=== PATIENT | male | born 1940 | race Caucasian/White ===

== ENCOUNTER 2017-08-15 13:15 | Outpatient (RCR) | payer MEDICARE, BC | END 2017-10-23 | LOC: MKS.ESL.PT | DX: R26.89 Other abnormalities of gait and mobility (principal) | CPT/HCPCS: G8978-GP; G8979-GP ==

== ENCOUNTER 2017-11-17 09:02 | Inpatient (IN) | payer MEDICARE, BC ==
[2017-11-17] VITALS (254 sets, daily range): BP systolic 101–141; BP diastolic 51–82; PULSE 71–94; TEMP 97–101.9; O2SAT 81–100
[~2017-11-17] VITALS: Ht 172.7 cm; Wt 69.2 kg
[2017-11-17 09:35] LABS: BASO % 0.6 % (0.0-2.0); EOS # 0.1 (0.0-0.7); EOS % 2.2 % (0-4.0); GRAN # 3.4 (1.4-6.5); GRAN % 67.1 % (42.2-75.2); HEMOGLOBIN 14.9 g/dl (13.5-18.0); LYMPH # 1.1 (1.2-3.4); LYMPH % 21.5 % (20.0-51.0); MEAN CELL VOLUME 88 fl (80.0-100.0); MEAN CORPUSCULAR HEMOGLOBIN 31 pg (27.0-31.0); MEAN CORPUSCULAR HGB CONC 35 g/dl (33.0-37.0); MEAN PLATELET VOLUME 8.3 fl (7.4-10.4); MONO # 0.4 (0.1-0.6); MONO % 8.4 % (1.7-9.3); PLATELET COUNT 140 K/mm3 (130-400); RED BLOOD COUNT 4.89 M/mm3 (4.20-5.60); REDCELL DISTRIBUTION WIDTH-CV 12.6 % (11.5-14.5)
[2017-11-17] MEDS ORDERED: SYNTHROID 0.10.15 MG PO (09:36)
[2017-11-17] MEDS ORDERED: APRESOLINE 10MG10 MG PO (09:37)
[2017-11-17] MEDS ORDERED: TOPROL XL 50MG50 MG PO (09:37)
[2017-11-17] MEDS ORDERED: LEXAPRO 10MG10 MG PO (09:38)
[2017-11-17] MEDS ORDERED: PLAVIX 75MG TAB75 MG PO (09:38)
[2017-11-17 09:39] LABS: INR 0.9 (0.8-3.0); PROTHROMBIN TIME 10.7 SECONDS (9.7-12.8)
[2017-11-17] MEDS ORDERED: MIRALAX PA17 GM/Dose PO (09:39)
[2017-11-17] MEDS ORDERED: ZYRTEC 10MG10 MG PO (09:39)
[2017-11-17] MEDS ORDERED: ASPIRIN 81M81 MG/TA2 PO (09:40)
[2017-11-17] MEDS ORDERED: MULTIPLE VITAMI1 CAP PO (09:40)
[2017-11-17] MEDS ORDERED: CARAFATE 1GM1 G PO (09:40)
[2017-11-17 09:41] LABS: PARTIAL THROMBOPLASTIN TIME 24.6 SECONDS (26.0-37.0)
[2017-11-17] MEDS ORDERED: MIRAPEX 1MG PO (09:42)
[2017-11-17] MEDS ORDERED: BENICAR40 MG PO (09:42)
[2017-11-17] MEDS ORDERED: ZOCOR 20MG20 MG PO (09:43)
[2017-11-17] MEDS ORDERED: PROSCAR 5MG5 MG PO (09:45)
[2017-11-17] MEDS ORDERED: PROTONIX 40MG T40 MG PO (09:46)
[2017-11-17] MEDS ORDERED: FLOMAX 0.40.4 MG/CAP PO (09:46)
[2017-11-17 09:48] LABS: ALANINE AMINOTRANSFERASE 29 U/L (21-72); ALBUMIN 4.4 gm/dL (3.5-5.0); ALKALINE PHOSPHATASE 84 U/L (50-136); ANION GAP 8 mmol/L (7-16); AST,SGOT 28 U/L (15-37); BILIRUBIN,TOTAL 0.7 mg/dL (0.0-1.0); BLOOD UREA NITROGEN 16 mg/dL (9-20); CALCIUM 9.7 mg/dL (8.4-10.2); CARBON DIOXIDE 26 mmol/L (22-30); CHLORIDE 100 mmol/L (98-107); CREATININE, serum 1.06 mg/dL (0.66-1.25); GLUCOSE 97 mg/dL (74-106); SODIUM 135 mmol/L (137-145); TOTAL PROTEIN 7.1 gm/dL (6.4-8.2)
[2017-11-17 09:51] LABS: C-REACTIVE PROTEIN < 0.5 mg/dL (0.0-0.9)
[2017-11-17 11:47] LABS: TSH w REFLEX 0.174 uIU/mL (0.465-4.680)
[2017-11-18] VITALS (757 sets, daily range): BP systolic 105–187; BP diastolic 59–98; PULSE 65–90; TEMP 97.3–99.2; O2SAT 70–100
[2017-11-18 05:41] LABS: BASO % 0.3 % (0.0-2.0); EOS % 0.3 % (0-4.0); GRAN # 4.7 (1.4-6.5); GRAN % 72.6 % (42.2-75.2); HEMATOCRIT 40.1 % (42.0-52.0); HEMOGLOBIN 14.2 g/dl (13.5-18.0); LYMPH # 1.1 (1.2-3.4); LYMPH % 16.4 % (20.0-51.0); MEAN CELL VOLUME 87 fl (80.0-100.0); MEAN CORPUSCULAR HEMOGLOBIN 31 pg (27.0-31.0); MEAN CORPUSCULAR HGB CONC 35 g/dl (33.0-37.0); MEAN PLATELET VOLUME 8.6 fl (7.4-10.4); MONO # 0.7 (0.1-0.6); MONO % 10.2 % (1.7-9.3); PLATELET COUNT 135 K/mm3 (130-400); RED BLOOD COUNT 4.59 M/mm3 (4.20-5.60); REDCELL DISTRIBUTION WIDTH-CV 12.7 % (11.5-14.5)
[2017-11-18 05:51] LABS: CALCIUM 9.2 mg/dL (8.4-10.2); CREATININE, serum 1.11 mg/dL (0.66-1.25); POTASSIUM 3.8 mmol/L (3.4-5.0)
[2017-11-18 08:28] LABS: COLLECTION METHOD CLEAN CATCH
[2017-11-18 08:45] LABS: PH 7 (5-8); SQUAMOUS EPITHELIAL None Seen /hpf; URINE APPEARANCE Clear; URINE BACTERIA None Seen /hpf; URINE BILIRUBIN Negative (NEGATIVE); URINE BLOOD Negative (NEGATIVE); URINE COLOR Yellow; URINE GLUCOSE Negative (NEGATIVE); URINE KETONE Trace (NEGATIVE); URINE LEUKOCYTE ESTERASE Negative (NEGATIVE); URINE NITRATE Negative (NEGATIVE); URINE PROTEIN(semi-quant) Negative (NEGATIVE); URINE RBC 0-2 /hpf; URINE UROBILINOGEN Negative (NEGATIVE); URINE WBC 0-2 /hpf
[2017-11-18 13:33] LABS: FOLATE (FOLIC ACID) 16.1 ng/mL (7.0-31.4)
[2017-11-19] VITALS (631 sets, daily range): BP systolic 118–151; BP diastolic 67–97; PULSE 56–106; TEMP 97.8–98.9; O2SAT 63–100
[2017-11-19 06:58] LABS: BASO % 0.5 % (0.0-2.0); EOS % 0.5 % (0-4.0); GRAN # 6.8 (1.4-6.5); GRAN % 82.3 % (42.2-75.2); HEMATOCRIT 39.8 % (42.0-52.0); HEMOGLOBIN 14.2 g/dl (13.5-18.0); LYMPH # 0.8 (1.2-3.4); LYMPH % 9.2 % (20.0-51.0); MEAN CELL VOLUME 87 fl (80.0-100.0); MEAN CORPUSCULAR HEMOGLOBIN 31 pg (27.0-31.0); MEAN CORPUSCULAR HGB CONC 36 g/dl (33.0-37.0); MEAN PLATELET VOLUME 8.5 fl (7.4-10.4); MONO # 0.6 (0.1-0.6); MONO % 7.3 % (1.7-9.3); PLATELET COUNT 133 K/mm3 (130-400); RED BLOOD COUNT 4.57 M/mm3 (4.20-5.60); REDCELL DISTRIBUTION WIDTH-CV 12.7 % (11.5-14.5)
[2017-11-19 07:23] LABS: CALCIUM 9.2 mg/dL (8.4-10.2); CREATININE, serum 1.01 mg/dL (0.66-1.25); POTASSIUM 3.4 mmol/L (3.4-5.0)
[2017-11-20] VITALS (494 sets, daily range): BP systolic 115–163; BP diastolic 57–90; PULSE 56–61; TEMP 97.8–98.1; O2SAT 93–100
[2017-11-20 05:44] LABS: BASO % 0.5 % (0.0-2.0); EOS # 0.2 (0.0-0.7); EOS % 3.9 % (0-4.0); GRAN # 3.5 (1.4-6.5); GRAN % 61.9 % (42.2-75.2); HEMATOCRIT 37.2 % (42.0-52.0); LYMPH # 1.4 (1.2-3.4); LYMPH % 24.1 % (20.0-51.0); MEAN CELL VOLUME 88 fl (80.0-100.0); MEAN CORPUSCULAR HEMOGLOBIN 31 pg (27.0-31.0); MEAN CORPUSCULAR HGB CONC 35 g/dl (33.0-37.0); MEAN PLATELET VOLUME 8.6 fl (7.4-10.4); MONO # 0.5 (0.1-0.6); MONO % 9.4 % (1.7-9.3); PLATELET COUNT 119 K/mm3 (130-400); RED BLOOD COUNT 4.21 M/mm3 (4.20-5.60); REDCELL DISTRIBUTION WIDTH-CV 12.9 % (11.5-14.5)
[2017-11-20 05:57] LABS: CALCIUM 9.1 mg/dL (8.4-10.2); CREATININE, serum 1.04 mg/dL (0.66-1.25); POTASSIUM 3.4 mmol/L (3.4-5.0)
[2017-11-20] MEDS ORDERED: TOPROL XL100 MG PO (10:52)
[2017-11-20] MEDS ORDERED: SEROQUEL 2525 MG/TAB PO (10:53)
== END 2017-11-20 13:35 | disposition home or self-care (01) | DRG 78 ==
LOC: COL.ER 09:02 → ICU 10:14
PROVIDERS: Emergency Medicine; Family Medicine; Internal Medicine; Internal Medicine Pulmonary Disease
DX: I67.4 Hypertensive encephalopathy (principal); I16.1 Hypertensive emergency; R47.01 Aphasia; I10 Essential (primary) hypertension; I25.10 Atherosclerotic heart disease of native coronary artery without angina pectoris; Z95.5 Presence of coronary angioplasty implant and graft; Z87.891 Personal history of nicotine dependence; R25.1 Tremor, unspecified; N40.1 Benign prostatic hyperplasia with lower urinary tract symptoms; R33.8 Other retention of urine; F03.90 Unspecified dementia, unspecified severity, without behavioral disturbance, psychotic disturbance, mood disturbance, and anxiety; G25.81 Restless legs syndrome
CPT/HCPCS: 99223-AI; 99233-AI; 99239; A4216; J0360; J1630; J1650; J2060; J3486; J7030; J7050

== ENCOUNTER 2018-04-02 14:30 | Outpatient (RCR) | payer MEDICARE, BC ==
[~2018-04-02 14:30] MED LIST: APRESOLINE 10MG10 MG PO; ASPIRIN 81M81 MG/TA2 PO; BENICAR40 MG PO; CARAFATE 1GM1 G PO; FLOMAX 0.40.4 MG/CAP PO; LEXAPRO 10MG10 MG PO; MIRALAX PA17 GM/Dose PO; MIRAPEX 1MG PO; MULTIPLE VITAMI1 CAP PO; PLAVIX 75MG TAB75 MG PO; PROSCAR 5MG5 MG PO; PROTONIX 40MG T40 MG PO; SEROQUEL 2525 MG/TAB PO; SYNTHROID 0.10.15 MG PO; TOPROL XL 50MG50 MG PO; TOPROL XL100 MG PO; ZOCOR 20MG20 MG PO; ZYRTEC 10MG10 MG PO
== END 2018-04-06 | disposition home or self-care (01) ==
LOC: WSST
DX: R41.842 Visuospatial deficit (principal); R41.3 Other amnesia; R41.840 Attention and concentration deficit; R48.9 Unspecified symbolic dysfunctions
CPT/HCPCS: G9165-GN; G9166-GN

== ENCOUNTER 2018-05-06 13:45 | Outpatient (RCR) | payer MEDICARE, BC | END 2018-07-07 | disposition home or self-care (01) | LOC: WSST | DX: R41.842 Visuospatial deficit (principal); R41.3 Other amnesia; R41.840 Attention and concentration deficit | CPT/HCPCS: G9165-GN; G9166-GN; G9167-GN ==

== ENCOUNTER → 2018-07-23 | Outpatient (CLI) | payer MEDICARE, BC | LOC: COL.CARD 09:47 | DX: F03.90 Unspecified dementia, unspecified severity, without behavioral disturbance, psychotic disturbance, mood disturbance, and anxiety (principal); G20 Parkinson's disease; R41.82 Altered mental status, unspecified ==

== ENCOUNTER 2019-02-15 11:18 | Emergency (ER) | payer MEDICARE, BC ==
[~2019-02-15] VITALS: Ht 175.3 cm; Wt 90.9 kg
[2019-02-15 11:33] LABS: BASO % 0.7 % (0.0-2.0); EOS # 0.1 (0.0-0.7); EOS % 1.6 % (0-4.0); GRAN # 4.3 (1.4-6.5); GRAN % 69.5 % (42.2-75.2); HEMATOCRIT 44.8 % (42.0-52.0); HEMOGLOBIN 15.7 g/dl (13.5-18.0); LYMPH # 1.2 (1.2-3.4); LYMPH % 20.1 % (20.0-51.0); MEAN CELL VOLUME 89 fl (80.0-100.0); MEAN CORPUSCULAR HEMOGLOBIN 31 pg (27.0-31.0); MEAN CORPUSCULAR HGB CONC 35 g/dl (33.0-37.0); MEAN PLATELET VOLUME 8.7 fl (7.4-10.4); MONO # 0.5 (0.1-0.6); MONO % 7.9 % (1.7-9.3); PLATELET COUNT 136 K/mm3 (130-400); RED BLOOD COUNT 5.03 M/mm3 (4.20-5.60); REDCELL DISTRIBUTION WIDTH-CV 13.2 % (11.5-14.5)
[2019-02-15 11:38] LABS: PROTHROMBIN TIME 10.8 SECONDS (9.7-12.8)
[2019-02-15 11:46] LABS: ALANINE AMINOTRANSFERASE 18 U/L (21-72); ALBUMIN 4.4 gm/dL (3.5-5.0); ALKALINE PHOSPHATASE 75 U/L (50-136); ANION GAP 8 mmol/L (7-16); AST,SGOT 28 U/L (15-37); BILIRUBIN,TOTAL 0.7 mg/dL (0.0-1.0); BLOOD UREA NITROGEN 22 mg/dL (9-20); CALCIUM 10.5 mg/dL (8.4-10.2); CARBON DIOXIDE 28 mmol/L (22-30); CHLORIDE 99 mmol/L (98-107); CREATININE, serum 1.25 (0.66-1.25); GLUCOSE 103 mg/dL (74-106); POTASSIUM 4.2 mmol/L (3.4-5.0); SODIUM 135 mmol/L (137-145); TOTAL PROTEIN 7.8 gm/dL (6.4-8.2)
[2019-02-15 11:52] LABS: C-REACTIVE PROTEIN < 0.5 mg/dL (0.0-0.9)
[2019-02-15 13:18] LABS: COLLECTION METHOD CLEAN CATCH
[2019-02-15 13:24] LABS: PH 7 (5-8); SQUAMOUS EPITHELIAL None Seen /hpf; URINE APPEARANCE Clear; URINE BACTERIA None Seen /hpf; URINE BILIRUBIN Negative (NEGATIVE); URINE BLOOD Negative (NEGATIVE); URINE COLOR Yellow; URINE GLUCOSE Negative (NEGATIVE); URINE KETONE Negative (NEGATIVE); URINE LEUKOCYTE ESTERASE Negative (NEGATIVE); URINE NITRATE Negative (NEGATIVE); URINE PROTEIN(semi-quant) Negative (NEGATIVE); URINE RBC None Seen /hpf; URINE UROBILINOGEN Negative (NEGATIVE)
[2019-02-15 13:30] VITALS: BP 156/88; PULSE 64
== END 2019-02-15 13:54 | disposition home or self-care (01) ==
LOC: COL.ER 11:18
PROVIDERS: Family Medicine
DX: G45.9 Transient cerebral ischemic attack, unspecified (principal); I25.10 Atherosclerotic heart disease of native coronary artery without angina pectoris; I10 Essential (primary) hypertension; N40.0 Benign prostatic hyperplasia without lower urinary tract symptoms; Z79.02 Long term (current) use of antithrombotics/antiplatelets; Z79.82 Long term (current) use of aspirin

== ENCOUNTER 2020-03-07 23:41 | Inpatient (IN) | payer MEDICARE, BC ==
[~2020-03-07] VITALS: Ht 175.3 cm; Wt 75.6 kg
[2020-03-08 00:33] LABS: BASO % 0.5 % (0.0-2.0); EOS # 0.1 (0.0-0.7); EOS % 1.9 % (0-4.0); GRAN # 4.2 (1.4-6.5); GRAN % 71.8 % (42.2-75.2); HEMATOCRIT 41.2 % (42.0-52.0); HEMOGLOBIN 14.1 g/dl (13.5-18.0); LYMPH % 16.8 % (20.0-51.0); MEAN CELL VOLUME 91 fl (80.0-100.0); MEAN CORPUSCULAR HEMOGLOBIN 31 pg (27.0-31.0); MEAN CORPUSCULAR HGB CONC 34 g/dl (33.0-37.0); MEAN PLATELET VOLUME 8.9 fl (7.4-10.4); MONO # 0.5 (0.1-0.6); MONO % 8.8 % (1.7-9.3); PLATELET COUNT 149 K/mm3 (130-400); RED BLOOD COUNT 4.55 M/mm3 (4.20-5.60); REDCELL DISTRIBUTION WIDTH-CV 13.5 % (11.5-14.5)
[2020-03-08 00:38] LABS: LACTIC ACID 0.9 mmol/L (0.4-2.0)
[2020-03-08 00:39] LABS: ALANINE AMINOTRANSFERASE 19 U/L (4-49); ALBUMIN 4.6 gm/dL (3.5-5.0); ALCOHOL(ethanol),MEDICAL < 10 mg/dL; ALKALINE PHOSPHATASE 82 U/L (50-136); ANION GAP 11 mmol/L (7-16); AST,SGOT 32 U/L (15-37); BILIRUBIN,TOTAL 0.7 mg/dL (0.0-1.0); BLOOD UREA NITROGEN 29 mg/dL (9-20); CALCIUM 9.6 mg/dL (8.4-10.2); CARBON DIOXIDE 23 mmol/L (22-30); CHLORIDE 107 mmol/L (98-107); CREATININE, serum 1.37 (0.66-1.25); GLUCOSE 104 mg/dL (74-106); SODIUM 140 mmol/L (137-145); TOTAL PROTEIN 7.7 gm/dL (6.4-8.2)
[2020-03-08 00:50] LABS: TROPONIN-I < 0.012 ng/mL (0.000-0.035)
[2020-03-08 01:14] LABS: COLLECTION METHOD CLEAN CATCH
[2020-03-08 01:22] LABS: MUCOUS Present /lpf; PH 5 (5-8); SQUAMOUS EPITHELIAL 0-2 /hpf; URINE APPEARANCE Clear; URINE BACTERIA None Seen /hpf; URINE BILIRUBIN Negative (NEGATIVE); URINE BLOOD Negative (NEGATIVE); URINE COLOR Yellow; URINE GLUCOSE Negative (NEGATIVE); URINE KETONE Negative (NEGATIVE); URINE LEUKOCYTE ESTERASE Negative (NEGATIVE); URINE NITRATE Negative (NEGATIVE); URINE PROTEIN(semi-quant) Negative (NEGATIVE)
[2020-03-08] MEDS ORDERED: SEROQUEL50 MG PO (01:23)
[2020-03-08] MEDS ORDERED: NUPLAZID34 MG PO (01:25)
[2020-03-08] MEDS ORDERED: SEROQUEL 2525 MG/TAB PO (01:25)
[2020-03-08 03:39] VITALS: BP 172/79; PULSE 65; TEMP 98.1
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
[2020-03-08 08:55] VITALS: BP 185/97; PULSE 76; TEMP 97.6
--- NOTE | 2020-03-08 09:32 | NUR ---
Rody from [facility] contacted about the patient. Rody reports that the patient recently moved into independent living. The patient has medication management services. The patient's is caregiver and they are open to [facility]. Will continue to follow.
--- NOTE | 2020-03-08 10:01 | NUR ---
Due to the patient's confusion, RAMILA contacted the patient's , Marge. The patient lives with Marge at [facility]. The patient receives medication management once a week and was interested in setting up HHS with [facility]. The patient does not have advanced directives. The patient plan is to go back to independent living with [facility]. RAMILA faxed referral to [facility]. Will continue to monitor.
[2020-03-08 11:30] VITALS: BP 185/99; PULSE 76; TEMP 97.4
[2020-03-08 11:33] LABS: CALCIUM 9.3 mg/dL (8.4-10.2); CREATININE, serum 1.12 (0.66-1.25); POTASSIUM 3.6 mmol/L (3.4-5.0)
[2020-03-08 12:03] LABS: TSH w REFLEX 5.9 uIU/mL (0.465-4.680)
[2020-03-08 16:50] VITALS: BP 173/96; PULSE 73; TEMP 97.4
--- NOTE | 2020-03-08 20:17 | NUR ---
PT SITTING IN CHAIR AT BEDSIDE, IS ORIENTED TO SELF. TAKES MEDS IN PUDDING. PICKING AT THINGS IN THE AIR AND ON HIS GOWN THAT ARE NOT THERE. ASSISTED TO BED. ALARMS ON.
--- NOTE | 2020-03-08 20:17 | NUR ---
REPORT GIVEN TO ON COMING SHIFT
--- NOTE | 2020-03-08 21:00 | NUR ---
PT HAS LEGS OVER SIDE OF BED, IS INCONTINENT OF URINE. ASSISTED TO BATHROOM, NO VOID. ASSISTED TO CHAIR AT BEDSIDE, PT BECOMES AGGRESSIVE AND HITTING AND KICKING THIS NURSE. WAS ABLE TO PUT DEPENDS ON PATIENT. PCT COBY ASSISTS WITH PATIENT AND IS ABLE TO CALM PT AND ASSIST HIM TO BED. BED ALARM ON.
[2020-03-08 21:41] VITALS: BP 126/69; PULSE 75; TEMP 97.8
--- NOTE | 2020-03-08 22:20 | NUR ---
PT RESTING WELL, RESPIRATIONS DEEP AND UNLABORED. SL TO LEFT AC INTACT.
--- NOTE | 2020-03-09 | NUR ---
Did not awaken patient with SQ Heparin at this time
--- NOTE | 2020-03-09 05:33 | NUR ---
Pt awake, confused to place and time. Thoughts are rambling as well as speech. Refusing to be cooperative with staff and has unsteady gait in the room. PCT currently staying with patient for safety.
[2020-03-09 08:00] VITALS: BP 152/75; PULSE 65; TEMP 98
--- NOTE | 2020-03-09 08:23 | NUR ---
Sitting in recliner chair with eyes closed. Opens eyes when talked to. Patient is alert but drowsy. Patient is confused. Cooperative during assessment. Patient says that he does not want to be here all day. Scabbed area noted to right ear. Telemetry and IV fluids no longer connected as the patient will not leave in place.
--- NOTE | 2020-03-09 10:28 | NUR ---
Patient attempting to get out of recliner chair. Assisted back into chair. Attempt to reorient patient but he remains confused. Talk with the patient and he has concerns about his trucks and no longer needing them. Patient denies further needs at this time.
--- NOTE | 2020-03-09 11:00 | NUR ---
Patient transferred to room 354. Patient ambulates to room from room 344. Gait slow and at times unsteady. Sits up in recliner in room.
--- NOTE | 2020-03-09 11:06 | NUR ---
Called patient's Marge and patient talks with his .
--- NOTE | 2020-03-09 11:47 | NUR ---
Patient's daughter Emma updated that patient was moved from 344 to room 354.
[2020-03-09 12:00] VITALS: BP 158/106; PULSE 71; TEMP 97.8
[2020-03-09 13:01] VITALS: BP 162/94
--- NOTE | 2020-03-09 13:06 | NUR ---
Sitting up in recliner. Patient says that he is done and is ready to go home. Explain to the patient he is in the hospital and there are a couple more doctors who will be coming by to see him and that he will be staying the night. Patient expresses he is not happy about this. Reassurance provided. Assisted the patient in finding TV channel. Patient denies further needs.
--- NOTE | 2020-03-09 13:38 | NUR ---
Patient starting to get restless and talking about that he needs to leave. Ativan administered as prescribed at this time. Patient remains sitting up in recliner.
--- NOTE | 2020-03-09 13:58 | NUR ---
A psychiatric consult was ordered for the patient and should be this day. RAMILA informed the patient's , Marge and the patient's daughter, Kitty. RAMILA discussed once Dr. Carlin makes a recommendation this will be discussed with them. RAMILA attempted to contact Rody with [facility] to collaborate this information. Will continue to follow.
--- NOTE | 2020-03-09 14:06 | NUR ---
Sitting up in chair sleeping. Respirations even and unlabored. No signs or symptoms of discomfort noted.
--- NOTE | 2020-03-09 15:05 | NUR ---
Patient restless talking that he needs to leave. NED Mercado ambulates with the patient in the halls. Patient returns to room and lays in bed. Denies further needs.
[2020-03-09 16:00] VITALS: BP 172/90; PULSE 73; TEMP 97.5
--- NOTE | 2020-03-09 16:06 | NUR ---
Patient agitated at this time. Refuses to have vital signs done. NED Mercado, ambulates with the patient in the halls.
--- NOTE | 2020-03-09 16:42 | NUR ---
Patient allows this nurse to check vital signs but expresses the entire time that his blood pressure is going to be elevated because he is stressed from being in the hospital and he is tired of all the tests being done and he is not going to allow any more tests or blood pressures for the day. Attempt to provide reassurance and the patient says "I am not going to have it." Patient expresses he wants to go home and is tired of his blood pressure constantly being tested and if he has more tests his blood pressure is going to get even higher. Patient will not stop talking or moving arm during process of getting blood pressure. Patient refuses to have checked again.
--- NOTE | 2020-03-09 16:43 | NUR ---
RAMILA collaborated with Dr. Carlin, she is recommending 24 care and a follow up with Dr. Ferrara in two weeks. RAMILA updated Rody and contacted the patient's daughter, Kitty with update. Will continue to monitor.
--- NOTE | 2020-03-09 16:51 | NUR ---
Contacted Dr. Julian regarding patient BP and increased agitation. Dr. Julian would like to get Dr. Carlin's recommendation on what to give and requests this nurse to call Dr. Carlin. Contacted Dr. Carlin and receive order to give Seroquel 25mg now.
--- NOTE | 2020-03-09 17:18 | NUR ---
Ambulate in halls with the patient. Patient remains agitated and says that he will not stay in the hospital and that he will be leaving and his blood pressure will not get better until he is able to go home. Attempt to calm patient. Patient returns to room and sits up in chair.
--- NOTE | 2020-03-09 18:20 | NUR ---
Patient's called and requested to speak with the patient. Patient sitting up in recliner with eyes closed. Woke patient up. Patient confused, reoriented. Spoke with . Patient requests to use bathroom at this time. Assisted patient to bathroom. Voids. Returns to recliner to eat.
[2020-03-09 20:20] VITALS: BP 152/71; PULSE 59; TEMP 97.6
--- NOTE | 2020-03-09 20:30 | NUR ---
Received report from QUE Lantigua. Pt sitting up in recliner chair. Alert and oriented to self and current date. Unable to state current place and situation. With confused speech, pt stated "there's a train coming." Reoriented pt back to time and place. Assisted pt to bed. Denies any pain or discomfort at this time. Meds administered as ordered. INT to LFA intact, flushed, dressing CDI. Made pt comfortable in bed. Bed alarm set. Call light within reach.
[2020-03-09 23:36] VITALS: BP 149/78; PULSE 59; TEMP 97.6
[2020-03-10 04:56] VITALS: BP 171/85; PULSE 64; TEMP 97.6
--- NOTE | 2020-03-10 05:39 | NUR ---
Pt got out of bed once during this shift to use BR. Standby assist with use of walker, briefs changed. Pt confused to time and place, reoriented pt. Made pt comfortable in bed. Meds adminsitered. Bed alarm set. Call light within reach.
[2020-03-10 06:13] LABS: BASO # 0.1 (0.0-0.2); BASO % 1.2 % (0.0-2.0); EOS # 0.2 (0.0-0.7); EOS % 3.9 % (0-4.0); GRAN # 2.5 (1.4-6.5); GRAN % 58.5 % (42.2-75.2); HEMATOCRIT 38.5 % (42.0-52.0); HEMOGLOBIN 13.5 g/dl (13.5-18.0); LYMPH # 1.1 (1.2-3.4); LYMPH % 26.5 % (20.0-51.0); MEAN CELL VOLUME 90 fl (80.0-100.0); MEAN CORPUSCULAR HEMOGLOBIN 31 pg (27.0-31.0); MEAN CORPUSCULAR HGB CONC 35 g/dl (33.0-37.0); MEAN PLATELET VOLUME 8.9 fl (7.4-10.4); MONO # 0.4 (0.1-0.6); MONO % 9.7 % (1.7-9.3); PLATELET COUNT 118 K/mm3 (130-400); REDCELL DISTRIBUTION WIDTH-CV 13.2 % (11.5-14.5)
[2020-03-10 06:25] LABS: CALCIUM 9.1 mg/dL (8.4-10.2); CREATININE, serum 1.09 (0.66-1.25); POTASSIUM 3.5 mmol/L (3.4-5.0)
--- NOTE | 2020-03-10 06:54 | NUR ---
Report given to QUE Black.
--- NOTE | 2020-03-10 08:00 | NUR ---
PT IN BED SLEEPING, EYES OPEN WHEN NAME IS CALLED, PT ORIENTED TO SELF AND PLACE BUT NOT SITUATION. PT STATES "I'M IN A MUCH BETTER MOOD THAN LAST NIGHT". ASSESSMENT PERFORMED, VITALS TAKEN, MEDS GIVEN. PT COMPLIANT WITH MEDICATIONS. PT STATED "ARE THESE FOR ME OR HIM?" WHEN GIVING THE MEDICATIONS , PT WOULD NOT CLARIFY ON WHO THE "HIM" WAS. FRESH ICE WATER BROUGHT IN, PT DRANK THE ENTIRE CUP, ANOTHER CUP BROUGHT IN, MIRALAX PUT IN APPLE JUICE. NO OTHER NEEDS AT THIS TIME.
[2020-03-10 08:12] VITALS: BP 150/83; PULSE 70; TEMP 97.9
[2020-03-10 08:30] LABS: CHOLESTEROL RISK RATIO 4.1
--- NOTE | 2020-03-10 10:50 | NUR ---
The hosptialist is recommending a geriatric psychiatric unit for the patient. RAMILA spoke to Rody at [facility]. She reports they would prefer the patient be placed at a pili psych unit before returning to [facility] as well. RAMILA contacted the patient's daughter/DP- Kitty to inform her, she was in agreeance. RAMILA contacted the patient's , Marge and she was in agreeance. RAMIL[facility], and [facility]. Awaiting responses.
[2020-03-10 11:42] VITALS: BP 136/70; PULSE 68; TEMP 97.6
[2020-03-10] MEDS ORDERED: NORVASC 5MG5 MG/TAB PO (13:38)
[2020-03-10] MEDS ORDERED: ATIVAN 0.50.5 MG/TAB PO (13:39)
[2020-03-10] MEDS ORDERED: SINEMET 25/101 UDTAB PO (13:39)
[2020-03-10] MEDS ORDERED: NAMENDA5 MG PO (13:42)
[2020-03-10] MEDS ORDERED: SYNTHROID 0.10.15 MG PO (13:43)
--- NOTE | 2020-03-10 14:23 | NUR ---
REPORT CALLED TO JADEN SOARES, NURSE AT [facility].
--- NOTE | 2020-03-10 15:04 | NUR ---
[place], at [facility] in [place], reports that they are able to accept the patient today and that the accepting physician is Dr. Calvin Mcelroy. RMAILA contacted and updated the patient's daughter/DPOA-HC, Emma. Emma is agreeable to this. RAMILA notified the clinical team and housefellow for secure transport. The patient is to discharge today, 03/10, [facility] Transportation to be provided by secure transport, within the next thirty minutes. RAMILA updated the patient's daughter and she was in agreeance to the time. No additional needs at this time. time.
[2020-03-10 15:09] VITALS: BP 136/70; PULSE 68; TEMP 97.6
--- NOTE | 2020-03-10 15:26 | NUR ---
PT LEFT VIA WHEELCHAIR, WITH MEDICATIONS AND WALLET. FAJARDO, KEYS, AND CREDIT CARD STAYED HERE TO BE PICKED UP BY DAUGHTER. IV DC'D. NO OTHER NEEDS AT THIS TIME.
== END 2020-03-10 15:28 | DRG 56 ==
LOC: COL.ER 23:41 → SURG 03-08 02:22 → MEDICAL 03-09 11:10
PROVIDERS: Emergency Medicine; Physician Assistant; ADMIT Student in an Organized Health Care Education/Training Program
DX: G20 Parkinson's disease (principal); I63.89 Other cerebral infarction; R44.3 Hallucinations, unspecified; N17.9 Acute kidney failure, unspecified; F02.81 Dementia in other diseases classified elsewhere, unspecified severity, with behavioral disturbance; F02.80 Dementia in other diseases classified elsewhere, unspecified severity, without behavioral disturbance, psychotic disturbance, mood disturbance, and anxiety; I10 Essential (primary) hypertension; I25.10 Atherosclerotic heart disease of native coronary artery without angina pectoris; Z95.5 Presence of coronary angioplasty implant and graft; Z88.1 Allergy status to other antibiotic agents; Z88.0 Allergy status to penicillin; Z88.8 Allergy status to other drugs, medicaments and biological substances; K27.9 Peptic ulcer, site unspecified, unspecified as acute or chronic, without hemorrhage or perforation; N40.0 Benign prostatic hyperplasia without lower urinary tract symptoms; F32.9 Major depressive disorder, single episode, unspecified; E03.9 Hypothyroidism, unspecified; Z79.02 Long term (current) use of antithrombotics/antiplatelets; Z79.82 Long term (current) use of aspirin
CPT/HCPCS: 99223-AI; 99233-AI; 99239; J1644; J2060; J7030